=== PATIENT | male | born 1980 | race Hispanic/Latino ===

== ENCOUNTER 2016-05-17 11:16 | Emergency (ER) | payer OTHER ==
[~2016-05-17] VITALS: Ht 165.1 cm; Wt 70.5 kg
[2016-05-17 11:20] VITALS: BP 134/88; PULSE 89; RESP 15; O2SAT 99
[2016-05-17] MEDS ORDERED: 0.9% Sodium Chloride Inhalation Solution ONE (11:47)
[2016-05-17] MEDS ORDERED: Fluorescein 0.6 mg Ophthalmic Strip ONE (11:48)
[2016-05-17] MEDS ORDERED: Tetracaine 0.5% 4 mL Ophthalmic Solution ONE (11:48)
--- NOTE | 2016-05-17 12:06 | ED.REPORT ---
HPI-Eye Problem Date of Service May 17, 2016 ED Provider: David Perez MD A 35 year old male with no pertinent medical history presents to the ED complaining of left eye pain. The pt believes that he got a piece of insulation in his eye while at work six days ago. This has occurred before and resolved spontaneously, but has not resolved this time. He has continued to feel a foreign body in his upper left eye, and his vision in the left eye became blurry after two days. The pt was seen at [facility] two days ago and given antibiotics, but his condition has not improved. Nursing Notes Stated Complaint: LEFT EYE RED AND PAINFUL Chief Complaint: Eye Nursing Notes Reviewed: Yes Allergies: Coded Allergies: No Known Allergies (Unverified , 05/17/16) Scheduled Ofloxacin (Ofloxacin) 5 Ml Drops 5 ML OT QID General Time Seen by MD: 11:47 Chief Complaint Left eye affected Hx Obtained From: Patient Arrived By: Walk-in Sudden in Onset?: No Onset Occurred: 6 days ago Symptom Duration: Since onset Recent Healthcare: No recent doctor visit, No recent hospitalization Similar Sx Previous: Yes Past Medical History Past Medical History none reported Past Surgical History none reported Smoking History Unknown if Ever Smoker Ambulatory Status Independent Review of Systems Constitutional: Denies: Chills, Fever Eyes: Reports: Blurred left, Eye pain left, Redness left Skin: Denies Rash Complete sys rev & neg: except as marked. Respiratory: Denies: Non-productive cough Cardiovascular: Denies: Chest pain GI: Denies: Abdominal pain Physical Exam Initial Vital Signs Vital Signs (First) Date Time Temp Pulse Resp B/P Pulse Ox O2 Delivery O2 Flow Rate FiO2 05/17/16 11:20 36.8 89 15 134/88 99 Room Air Initial VS: Reviewed Head / Eyes: Atraumatic, Normocephalic, PERRL, EOMI diffuse erythema of left eye General/Constitutional: Awake, Alert ENT: Atraumatic, Airway patent, Mucous membranes moist Skin: Atraumatic, Color NL, No rash, Warm, Dry Neurologic: Oriented X3, Speech NL, No motor deficits, No sensory deficits Neck: Atraumatic, Supple, Full range of motion Respiratory / Chest: Atraumatic, Breath sounds NL, Breath sounds = bilat, No respiratory distress Cardiovascular: Heart rate NL, Regular rhythm, Heart sounds NL Abdomen: Atraumatic, Soft, Non-tender Back: Atraumatic, Full range of motion Upper Extremity / MS: Atraumatic, Full range of motion Lower Extremity / Pelvis / MS: Atraumatic, Full range of motion Psychiatric: Affect NL, Mood NL Re-Eval/Medical Decision Med Decision/Clinical Course 35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 He believes he got insulation in his eye last week. He saw a clinic doctor and was started on gentamicin drops last Wednesday. Reports no improvement. Reports left eye blurry vision. Reports left eye foreign body sensation. Visual acuity is 20/40 with glasses left eye. No foreign body visualized. No corneal abrasion on fluorescein. Discussed with ophthalmology who recommended changing to Floxin drops and following up with them tomorrow. He was given the clinic phone number to call. Source of Hx: Old records Re-Evaluation/Progress : Time of Eval: 13:02 Patient Status: Condition improved Re-Evaluation/Progress Note: Pt rechecked, who is comfortable. He is informed of his diagnosis and the plan for discharge with follow up. The pt understands and agrees with the plan. All questions are addressed at this time. Consultation : Referral / Consult Name: [facility] Returned at: 12:53 Aoc Director Combat Plans Officer: Will see in office, Agrees with eval, Agrees with plan Note: Consulted with Dr. Oliva of [facility]. Dr. Oliva recommends Ofloxacin and follow up tomorrow. Counseled Regarding: Diagnosis, Need for follow-up, When/why to return to ED Discharge & Departure Primary Impression: Corneal abrasion Encounter type: initial encounter Laterality: left Qualified Code: S05.02XA - Injury of conjunctiva and corneal abrasion without foreign body, left eye, initial encounter Disposition: Home Discharge Condition All VS Reviewed: Yes Condition: Stable Patient Instructions: Corneal Abrasion (ED) Additional Instructions: Follow up with [facility] tomorrow. The phone number is . Return to the ED if you develop any new or worsening symptoms. Seguimiento con [facility] jamaal. El nmero de telfono es . Volver al ED si usted desarrolla cualquier sntoma nuevo o que empeora. Referrals: [facility] Jennifer Attestation Portions of this note were transcribed by Umesh Robb I, Dr. Perez personally performed the history, physical exam and medical decision-making; I reviewed and confirmed the accuracy of the information in the transcribed note. Signed by: Jennifer Tineo, 05/17/16 and 12:57. copies to: [facility] David Perez MD May 17, 2016 12:06 UMESH ROBB May 17, 2016 12:38
[2016-05-17] MEDS ORDERED: OFLO5DRO9 OT (12:57)
== END 2016-05-17 12:59 | disposition home or self-care (01) ==
LOC: SED 11:16
DX: S05.02XA Injury of conjunctiva and corneal abrasion without foreign body, left eye, initial encounter (principal); X58.XXXA Exposure to other specified factors, initial encounter; Y93.89 Activity, other specified; Y92.9 Unspecified place or not applicable; Y99.0 Civilian activity done for income or pay